=== PATIENT | female | born 1965 | race Caucasian/White ===

== ENCOUNTER 2021-09-04 11:34 | Emergency (ER) | payer OTHER ==
[2021-09-04 11:47] VITALS: BP 134/71; PULSE 67; TEMP 97.8; BMI 28.3
[2021-09-04] MEDS ORDERED: IBUPROFEN 400 MG TABLET (FP) PO ONE ×2 (12:55→13:10)
== END 2021-09-04 13:33 | disposition home or self-care (01) ==
LOC: FER 11:34
DX: M79.10 Myalgia, unspecified site (principal)
CPT/HCPCS: 73590-TC-RT-FY; 99283-25